=== PATIENT | male | born 1950 | race Caucasian/White ===

== ENCOUNTER 2017-12-13 18:49 | Emergency (ER) | payer MEDICARE, OTHER ==
--- NOTE | 2017-12-13 18:59 | ED Physician Documentation ---
PD HPI SKIN - Stated complaint Stated Complaint: LT FOOT BLISTER - Chief complaint Chief Complaint: Wound - History obtained from History obtained from: Patient - History of Present Illness Timing - onset: Today Timing - duration: Days (he has had a thickened skin area over a bone spur on the plantar aspect, with the area of it appearing c/w a corn. He had been walking more today and when took shoe off, noted a blister distal to that area of thick skin. No drainage.) Timing - details: Abrupt onset (for the blister part of it today) Location: LLE (plantar mid foot) Quality / character: No: Painful, Burning Review of Systems Constitutional: denies: Fever, Chills, Myalgias GI: denies: Nausea, Vomiting PD PAST MEDICAL HISTORY - Past Medical History Cardiovascular: Hypertension, High cholesterol Respiratory: None Endocrine/Autoimmune: Type 2 diabetes GI: None : None HEENT: None Psych: None Musculoskeletal: None Derm: None - Past Surgical History Past Surgical History: Yes - Present Medications Home Medications: Ambulatory Orders Medication Instructions Recorded Confirmed Insulin Glargine [Lantus] 35 units SQ BID 11/13/13 01/17/15 Lisinopril 20 mg PO DAILY 11/13/13 01/17/15 Metformin HCl 1,000 mg PO BID 11/13/13 01/17/15 Simvastatin 40 mg PO DAILY 11/13/13 01/17/15 Aspirin [Children's Aspirin] 81 mg PO DAILY 09/01/14 01/17/15 Sulfamethox/Trimeth 800/160 1 each PO BID #14 tablet 12/13/17 [Bactrim Ds 800/160] - Allergies Allergies/Adverse Reactions: Allergies Allergy/AdvReac Type Severity Reaction Status Date / Time No Known Drug Allergies Allergy Verified 12/13/17 18:56 - Social History Does the pt smoke?: No Smoking Status: Never smoker Does the pt drink ETOH?: No Does the pt have substance abuse?: No - Immunizations Immunizations are current?: Yes - POLST Patient has POLST: No PD ED PE NORMAL - Vitals Vital signs reviewed: Yes - General General: Alert and oriented X 3, No acute distress, Well developed/nourished - Derm Derm: Normal color, Warm and dry - Extremities Extremities: Other (let mid foot plantar aspect with rounded hyperkeratotic, firm area without central umbilication. Distal to that is a 2x3 cm flatter blister with purple fluid in it. Watery fluid, and not thicker. No surrounding redness. ) Results - Vitals Vitals: Oxygen O2 Source Room air - Labs Labs: Microbiology 12/13/17 19:23 Wound Culture - Preliminary Foot - Left Laboratory Tests 12/13/17 19:05 POC Whole Bld Glucose 180 H PD MEDICAL DECISION MAKING - ED course Complexity details: considered differential (used scalpel tip to just mason the wound to get 2 good drops out, which was watery, cloudy to old bloody color, but not thick nor overtly purulent. ), d/w patient, d/w rewards consultant (patient called his Leather Scraper on his own phone and had me talk with him. He agreed to opening with mason to get fluid for culture, dressing it, and Rx for anti-staph coverage.) Departure - Departure Disposition: Home, Self Care Clinical Impression: Blister of plantar aspect of foot Qualifiers: Encounter type: initial encounter Laterality: left Qualified Code(s): S90.822A - Blister (nonthermal), left foot, initial encounter Condition: Stable Record reviewed to determine appropriate education?: Yes Instructions: ED Staph Infec Abx Tx Only Follow-Up: SIMONA HARRIS [Primary Care Provider] - Prescriptions: Sulfamethox/Trimeth 800/160 [Bactrim Ds 800/160] 1 each PO BID #14 tablet Comments: Clean the area with soap and water couple times a day. He can use some topical ointment. Have it wrapped for padding. Bactrim antibiotic twice daily for the next several days pending the culture result. Concern would be for early infection such as staph aureus. Follow-up with the strategic intelligence officer Friday as planned. Discharge Date/Time: 12/13/17 19:46
[2017-12-13 19:21] VITALS: BP 169/74
[2017-12-13] MEDS ORDERED: SULFAMETH/TRIMETH DS 800/160 MG TABLET PO STA (19:25)
== END 2017-12-13 19:46 | disposition home or self-care (01) ==
LOC: ED 18:49
DX: S90.822A Blister (nonthermal), left foot, initial encounter (principal); X58.XXXA Exposure to other specified factors, initial encounter; Y93.01 Activity, walking, marching and hiking; I10 Essential (primary) hypertension; E78.00 Pure hypercholesterolemia, unspecified; E11.9 Type 2 diabetes mellitus without complications; Z79.4 Long term (current) use of insulin; Z79.82 Long term (current) use of aspirin
CPT/HCPCS: 10140; 87070; 87077; 87181; 87205; 99283; A9270

== ENCOUNTER 2018-04-25 10:36 | Emergency (ER) | payer MEDICARE, OTHER ==
[2018-04-25 10:45] VITALS: BP 166/72
--- NOTE | 2018-04-25 10:58 | ED Physician Documentation ---
PD HPI WOUND RECHECK - Stated complaint Stated Complaint: BANDAGE CHANGE - Chief complaint Chief Complaint: Wound - Histroy obtained from History obtained from: Patient - History of Present Illness Location: Left Foot Pain level max: 1 - Additional information Additional information: Patient is a 67-year-old male with history of diabetes, diabetic neuropathy, Charcot's foot. Patient had surgery performed yesterday on his left foot and was told by his surgeon to come to the ED today for repeat imaging of his wound. Patient has bandaging and a posterior splint over his left lower extremity. Patient notes no significant pain, but some bleeding. No purulent drainage. Patient also denies other systemic symptoms such as fever, chills, vomiting, or other complaints. No particular improving or worsening symptoms or interventions noted. Review of Systems Constitutional: denies: Fever, Chills GI: denies: Vomiting Skin: reports: Other (Left lower extremity wound overlying foot with serosanguineous drainage) Musculoskeletal: denies: Extremity pain Neurologic: reports: Numbness PD PAST MEDICAL HISTORY - Past Medical History Past Medical History: Yes Cardiovascular: Hypertension, High cholesterol Respiratory: None Endocrine/Autoimmune: Type 2 diabetes GI: None : None HEENT: None Psych: None Musculoskeletal: None Derm: None - Past Surgical History Past Surgical History: Yes - Present Medications Home Medications: Ambulatory Orders Medication Instructions Recorded Confirmed Insulin Glargine [Lantus] 35 units SQ BID 11/13/13 04/25/18 Lisinopril 20 mg PO DAILY 11/13/13 04/25/18 Metformin HCl 1,000 mg PO BID 11/13/13 04/25/18 Simvastatin 40 mg PO DAILY 11/13/13 04/25/18 Aspirin [Children's Aspirin] 81 mg PO DAILY 09/01/14 04/25/18 Sulfamethox/Trimeth 800/160 1 each PO BID #14 tablet 12/13/17 04/25/18 [Bactrim Ds 800/160] - Allergies Allergies/Adverse Reactions: Allergies Allergy/AdvReac Type Severity Reaction Status Date / Time No Known Drug Allergies Allergy Verified 04/25/18 10:46 - Social History Does the pt smoke?: No Smoking Status: Never smoker Does the pt drink ETOH?: No Does the pt have substance abuse?: No - Immunizations Immunizations are current?: Yes - POLST Patient has POLST: No PD ED PE NORMAL - General General: Alert and oriented X 3, No acute distress, Well developed/nourished - HEENT HEENT: Atraumatic - Cardiac Cardiac: Strong equal pulses - Respiratory Respiratory: No respiratory distress - Derm Derm: Normal color, Warm and dry, No rash, Other (Sutures in place with mild serosanguineous bleeding but no purulent drainage overlying the left foot) - Extremities Extremities: No tenderness to palpate, Other (Managing and short posterior slab splint in place over left lower extremity) - Neuro Neuro: Alert and oriented X 3, Other (Unchanged diabetic neuropathy of lower extremities) Results - Vitals Vitals: Vital Signs - 24 hr 04/25/18 10:44 Temperature 36.0 C L Heart Rate 89 Respiratory 16 Rate Blood Pressure 166/72 H O2 Saturation 99 Oxygen O2 Source Room air PD MEDICAL DECISION MAKING - ED course Complexity details: d/w patient, d/w family ED course: Patient presenting to the ED with request for bandaging change. Spoke briefly with the patient's ur coordinator on the phone who provided recommendations on appropriate bandaging. No evidence of infection or other complication on exam. Patient has mild serosanguineous drainage that required re-bandaging.No further interventions required.Patient comfortable with discharge plan. Departure - Departure Disposition: 01 Home, Self Care Condition: Good Instructions: Wound Care Follow-Up: SIMONA HARRIS [Primary Care Provider] - Within 3 Days Fabrizio Garcia DPM [Physician No Access] - Within 3 Days Comments: Please follow-up with surgeon and podiatry as scheduled in the next several days. Please follow all recommendations and precautions regarding your foot, including bandaging and appropriate use of medications. Please return to ED if experience any complications or have other concerns.
--- NOTE | 2018-04-26 12:56 | ED Physician Documentation ---
ED Addendum - Addendum Addendum: 04/26/18 12:56 Diagnosis wound check Status good
== END 2018-04-25 13:07 | disposition home or self-care (01) ==
LOC: ED 10:36
DX: Z48.01 Encounter for change or removal of surgical wound dressing (principal); S91.302A Unspecified open wound, left foot, initial encounter; I10 Essential (primary) hypertension; E11.9 Type 2 diabetes mellitus without complications; Z79.4 Long term (current) use of insulin
CPT/HCPCS: 99281; 99283

== ENCOUNTER 2020-04-07 15:24 | Outpatient (CLI) | payer MEDICARE, OTHER | END 2020-04-07 15:25 | disposition home or self-care (01) | LOC: COV 15:24 | PROVIDERS: ATTEND Family Medicine | DX: M79.10 Myalgia, unspecified site (principal); R68.83 Chills (without fever); J34.89 Other specified disorders of nose and nasal sinuses; Z20.822 Contact with and (suspected) exposure to COVID-19 ==

== ENCOUNTER 2022-01-18 12:43 | Emergency (ER) | payer MEDICARE, OTHER ==
[2022-01-18 12:57] VITALS: BP 158/65
[2022-01-18 13:21] LABS: BASOPHILS % (AUTO) 0.9 %; EOSINOPHILS # (AUTO) 0.1 10^3/uL (0.0-0.7); EOSINOPHILS % (AUTO) 2.1 %; HCT - HEMATOCRIT 41.6 % (42.0-52.0); HGB - HEMOGLOBIN 13.3 g/dL (14.0-18.0); LYMPHOCYTES # (AUTO) 0.8 10^3/uL (1.5-3.5); MEAN CORPUSCULAR HEMOGLOBIN 29.3 pg (27.0-31.0); MEAN CORPUSCULAR VOLUME 91.6 fL (80.0-94.0); MEAN PLATELET VOLUME 8.9 fL (7.4-11.4); MONOCYTES # (AUTO) 0.8 10^3/uL (0.0-1.0); MONOCYTES % (AUTO) 16.3 %; NEUTROPHILS # (AUTO) 2.9 10^3/uL (1.5-6.6); NEUTROPHILS % (AUTO) 62.1 %; PLT - PLATELET COUNT 290 10^3/uL (130-450); RED BLOOD COUNT 4.54 10^6/uL (4.70-6.10); RED CELL DISTRIBUTION WIDTH 14.4 % (12.0-15.0); WHITE BLOOD COUNT 4.7 x10^3/uL (4.8-10.8)
[2022-01-18 13:32] LABS: ALBUMIN 4.3 g/dL (3.2-5.5); ALBUMIN/GLOBULIN RATIO 1.1 (1.0-2.2); BILIRUBIN,TOTAL 0.7 mg/dL (0.2-1.0); CALCIUM 9.3 mg/dL (8.5-10.3); CREATININE 1.3 mg/dL (0.6-1.2); POTASSIUM 4.9 mmol/L (3.5-5.0); TOTAL PROTEIN 8.2 g/dL (6.7-8.2)
--- NOTE | 2022-01-18 14:02 | ED Physician Documentation ---
History of Present Illness - Stated complaint Stated Complaint: H POTASSIUM - Chief complaint Chief Complaint: General - Additonal information Additional information: History obtained from patient. 71-year-old type II diabetic presents to the emergency department on the advice of his physician's through [facility] for evaluation of hyperkalemia. He is currently undergoing treatment and care for bilateral foot infections and is on Bactrim. During routine laboratory draw yesterday they noted that a potassium was 6.6 and he was advised to come to the emergency department. He is denying any chest pain, nausea vomiting paresthesias, diarrhea. He does report that the blood draw completed a few days ago was traumatic. He does have a large bruise in this region. Review of Systems Constitutional: denies: Fever, Chills Cardiac: denies: Chest pain / pressure, Palpitations Respiratory: denies: Dyspnea, Cough Skin: reports: Other (Partial toe amputations on both feet. 1 foot in a walking boot the other in a postop splint) Musculoskeletal: reports: Reviewed and negative PD PAST MEDICAL HISTORY - Past Medical History Cardiovascular: Hypertension, High cholesterol Respiratory: None Endocrine/Autoimmune: Type 2 diabetes GI: None : None HEENT: None Psych: None Musculoskeletal: None Derm: None - Past Surgical History Past Surgical History: Yes - Present Medications Home Medications: Ambulatory Orders Medication Instructions Recorded Confirmed Insulin Glargine [Lantus] 35 units SQ BID 11/13/13 04/25/18 Metformin HCl 1,000 mg PO BID 11/13/13 04/25/18 Simvastatin 40 mg PO DAILY 11/13/13 04/25/18 lisinopriL [Lisinopril] 20 mg PO DAILY 11/13/13 04/25/18 Aspirin [Children's Aspirin] 81 mg PO DAILY 09/01/14 04/25/18 Sulfamethox/Trimeth 800/160 1 each PO BID #14 tablet 12/13/17 04/25/18 [Bactrim Ds 800/160] - Allergies Allergies/Adverse Reactions: Allergies Allergy/AdvReac Type Severity Reaction Status Date / Time No Known Drug Allergies Allergy Verified 01/18/22 12:56 - Social History Does the pt smoke?: No Smoking Status: Never smoker Does the pt drink ETOH?: No Does the pt have substance abuse?: No - Immunizations Immunizations are current?: Yes - POLST Patient has POLST: No PD ED PE NORMAL - General General: Alert and oriented X 3, No acute distress - Cardiac Cardiac: RRR, No murmur - Respiratory Respiratory: Clear bilaterally - Abdomen Abdomen: Normal bowel sounds, Soft, Non tender, Non distended - Derm Derm: Normal color, Warm and dry Results - Vitals Vitals: Vital Signs - 24 hr 01/18/22 12:53 Temperature 36.5 C Heart Rate 95 Respiratory 14 Rate Blood Pressure 158/65 H O2 Saturation 100 Oxygen O2 Source Room air - EKG (time done) 1303 Rate: Rate (enter#) (94) Rhythm: NSR [place]: Normal Intervals: Normal NE QRS: Normal Ischemia: Q waves (Inferior leads) Compare to prior EKG: Old EKG unavailable Computer interpretation: Agree with computer - Labs Labs: Laboratory Tests 01/18/22 01/18/22 13:14 13:14 WBC 4.7 L RBC 4.54 L Hgb 13.3 L Hct 41.6 L MCV 91.6 MCH 29.3 MCHC 32.0 RDW 14.4 Plt Count 290 MPV 8.9 Neut # (Auto) 2.9 Lymph # (Auto) 0.8 L [place] # (Auto) 0.8 Eos # (Auto) 0.1 Baso # (Auto) 0.0 Absolute Nucleated RBC 0.00 Nucleated RBC % 0.0 Sodium 134 L Potassium 4.9 Chloride 99 L Carbon Dioxide 23 Anion Gap 12.0 BUN 23 H Creatinine 1.3 H Estimated GFR (MDRD) 55 L Glucose 227 H Calcium 9.3 Total Bilirubin 0.7 AST 45 H ALT 46 Alkaline Phosphatase 62 Total Protein 8.2 Albumin 4.3 Globulin 3.9 Albumin/Globulin Ratio 1.1 Lipase 66 H PD MEDICAL DECISION MAKING - ED course Complexity details: reviewed results, re-evaluated patient, considered differential, d/w patient ED course: Well-appearing 8-year-old male who is a type II diabetic on insulin presents emergency department for concerns of hyperkalemia during a routine laboratory draw yesterday. Reportedly potassium was 6.6. We did repeat his CBC and electrolytes here in the emergency department and note a normal potassium of 4.9. He does report that the collaborating supervising physician had a difficult time obtaining the draw yesterday and there is a large area of ecchymosis around the site. I suspect that the cause of the hyperkalemia was simply hemolysis. No further care is warranted at this time his EKG was sinus rhythm without findings or T wave elevation to suggest hyperkalemia. He is discharged home in stable condition. Emergent return precautions discussed. Departure - Departure Disposition: 01 Home, Self Care Clinical Impression: Laboratory examination Condition: Stable Record reviewed to determine appropriate education?: Yes Comments: Rafa you were advised to [place] concerns that you are hyperkalemic or had an elevated potassium level in your blood. They reported a potassium of 6.6. Your potassium is 4.9 today. This is a normal value. I suspect that the elevated potassium was simply due to hemolysis of the red blood cells [place] Your EKG here did not show any findings to suggest hyperkalemia. At this point no further care is necessary. You can continue to follow[place]iat[place] You can continue your usual medications including the antibiotic to treat the foot infection. Return to the ER for any other worrisome or emergent concerns.
== END 2022-01-18 14:19 | disposition home or self-care (01) ==
LOC: ED 12:43
DX: Z03.89 Encounter for observation for other suspected diseases and conditions ruled out (principal); L08.9 Local infection of the skin and subcutaneous tissue, unspecified
CPT/HCPCS: 36415; 80053; 83690; 85025; 93005; 99281; 99283

== ENCOUNTER 2023-05-09 17:53 | Emergency (ER) | payer MEDICARE, OTHER ==
[2023-05-09 18:03] VITALS: BP 140/64; O2SAT 97
--- NOTE | 2023-05-09 18:11 | ED Physician Documentation ---
PD HPI WOUND RECHECK - Stated complaint Stated Complaint: LT TOE INJ - Chief complaint Chief Complaint: Wound - Histroy obtained from History obtained from: Patient - Additional information Additional information: 72-year-old gentleman with history of diabetes with neuropathy and Charcot foot. Already missing most of the toes on the right foot. He developed a corn on the left foot which popped yesterday and has some pus from it and was referred here f by his account clerk for x-ray imaging and wound care and antibiotics. He specifically rest [facility] Bactrim for this, states he had good relic with it in the past. PD PAST MEDICAL HISTORY - Past Medical History Past Medical History: Yes Cardiovascular: Hypertension, High cholesterol Respiratory: None Endocrine/Autoimmune: Type 2 diabetes GI: None : None HEENT: None Psych: None Musculoskeletal: None Derm: None - Past Surgical History Past Surgical History: Yes - Present Medications Home Medications: Ambulatory Orders Medication Instructions Recorded Confirmed Insulin Glargine [Lantus] 35 units SQ BID 11/13/13 05/09/23 Metformin HCl 1,000 mg PO BID 11/13/13 05/09/23 Simvastatin 40 mg PO DAILY 11/13/13 05/09/23 lisinopriL [Lisinopril] 20 mg PO DAILY 11/13/13 05/09/23 Aspirin [Children's Aspirin] 81 mg PO DAILY 09/01/14 05/09/23 Sulfamethox/Trimeth 800/160 1 each PO BID #14 tablet 12/13/17 05/09/23 [Bactrim Ds 800/160] Sulfamethox/Trimeth 800/160 1 each PO BID #14 tablet 05/09/23 [Bactrim Ds 800/160] - Allergies Allergies/Adverse Reactions: Allergies Allergy/AdvReac Type Severity Reaction Status Date / Time No Known Drug Allergies Allergy Verified 05/09/23 17:57 - Social History Does the pt smoke?: No Smoking Status: Never smoker Does the pt drink ETOH?: No Does the pt have substance abuse?: No - Immunizations Immunizations are current?: Yes - POLST Patient has POLST: No PD ED PE NORMAL - Vitals Vital signs reviewed: Yes - General General: Alert and oriented X 3, No acute distress - Extremities Extremities: Other (There is an infected ulcer/blister over the dorsum of the left third toe that was debrided sharply during exam and there was just a drop of pus and sent for culture.) - Neuro Neuro: Alert and oriented X 3, Normal speech Results - Vitals Vitals: Vital Signs - 24 hr 05/09/23 17:57 Temperature 36.5 C Heart Rate 100 Respiratory 16 Rate Blood Pressure 140/64 H O2 Saturation 97 Oxygen O2 Source Room air - Labs Labs: Microbiology 05/09/23 18:10 Wound Culture - Preliminary Toe - Left Fourth - Rads (name of study) Left foot x-ray negative for osteomyelitis. Relevant Findings:: Final report received, EMP independent interpretation of test PD Medical Decision Making - ED course ED course: 72-year-old gentleman with diabetes and diabetic neuropathy and Charcot foot presents with an infection with an ulcer and corn to the top of the left third toe which was debrided and cultured and he was placed on Bactrim with negative x-ray. He has a account clerk with whom he will follow-up. Departure - Departure Disposition: Home, Self Care Clinical Impression: Toe infection, Type 1 diabetes, controlled, with cellulitis of toe Condition: Good Record reviewed to determine appropriate education?: Yes Instructions: Cellulitis Dc Prescriptions: Sulfamethox/Trimeth 800/160 [Bactrim Ds 800/160] 1 each PO BID #14 tablet Comments: The x-ray does not demonstrate that the infection is down to the bone. Follow- up with your account clerk on Friday. Return for new or worsening symptoms. We are performing a wound culture, the results should be done in 48-72 hours. If antibiotic change is necessary we will call you. Return if worse in the meantime, especially if you develop increased pain, fevers, cannot keep down the medication. Otherwise follow-up with your physician in approximately 2-3 days. Forms: PCP List Discharge Date/Time: 05/09/23 18:50
[2023-05-09] MEDS: SULFAMETH/TRIMETH DS 800/160 MG TABLET PO STA (18:29)
--- NOTE | 2023-05-09 19:09 | XRAY Report ---
PROCEDURE: Foot 3+V LT INDICATIONS: toe inf TECHNIQUE: 3 views of the foot were acquired. COMPARISON: None. FINDINGS: Bones: Diffusely decreased osseous mineralization. Extensive post surgical changes within the midfoot . However appears intact. Severe pes planus deformity. No suspicious bony lesions. Soft tissues: No tibiotalar joint effusion. Achilles tendon appears normal. Atherosclerotic vascul ar calcifications. IMPRESSION: 1.No definite erosive changes are seen to suggest osteomyelitis. Radiograph is not sensitive for meghann y osteomyelitis and MRI can be obtained for further evaluation as clinically indicated. 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 Reviewed by: Oj Rubio MD on 05/09/2023 7:08 PM PDT Approved by: Oj Rubio MD on 05/09/2023 7:08 PM PDT Station ID: [id number]
== END 2023-05-09 18:50 | disposition home or self-care (01) ==
LOC: ED 17:53
DX: E11.628 Type 2 diabetes mellitus with other skin complications (principal); L03.032 Cellulitis of left toe; Z79.84 Long term (current) use of oral hypoglycemic drugs; I10 Essential (primary) hypertension
CPT/HCPCS: 73630; 87070; 87205; 99284; A9270

== ENCOUNTER 2023-05-15 19:15 | Emergency (ER) | payer MEDICARE, OTHER ==
[2023-05-15 19:34] VITALS: BP 157/67
[2023-05-15 20:00] LABS: BASOPHILS # (AUTO) 0.1 10^3/uL (0.0-0.1); BASOPHILS % (AUTO) 1.2 %; EOSINOPHILS # (AUTO) 0.1 10^3/uL (0.0-0.7); EOSINOPHILS % (AUTO) 2.5 %; HCT - HEMATOCRIT 43.1 % (42.0-52.0); HGB - HEMOGLOBIN 13.4 g/dL (14.0-18.0); LYMPHOCYTES # (AUTO) 1.5 10^3/uL (1.5-3.5); MEAN CORPUSCULAR HEMOGLOBIN 29.3 pg (27.0-31.0); MEAN CORPUSCULAR HGB CONC 31.1 g/dL (32.0-36.0); MEAN CORPUSCULAR VOLUME 94.3 fL (80.0-94.0); MEAN PLATELET VOLUME 8.9 fL (7.4-11.4); MONOCYTES # (AUTO) 0.7 10^3/uL (0.0-1.0); MONOCYTES % (AUTO) 13.6 %; NEUTROPHILS # (AUTO) 2.8 10^3/uL (1.5-6.6); NEUTROPHILS % (AUTO) 53.2 %; PLT - PLATELET COUNT 272 10^3/uL (130-450); RED BLOOD COUNT 4.57 10^6/uL (4.70-6.10); RED CELL DISTRIBUTION WIDTH 14.6 % (12.0-15.0); WHITE BLOOD COUNT 5.2 x10^3/uL (4.8-10.8)
[2023-05-15 20:09] LABS: MAGNESIUM 1.8 mg/dL (1.7-2.3)
[2023-05-15 20:14] LABS: CALCIUM 9.1 mg/dL (8.5-10.3); CREATININE 1.1 mg/dL (0.6-1.3); POTASSIUM 4.8 mmol/L (3.5-4.5)
[2023-05-15] MEDS ORDERED: SODIUM CHLORIDE 0.9% 1,000 ML IV ONE (20:16)
--- NOTE | 2023-05-15 20:16 | ED Physician Documentation ---
History of Present Illness - Stated complaint Stated Complaint: ABNORMAL LABS - Chief complaint Chief Complaint: General PD PAST MEDICAL HISTORY - Past Medical History Cardiovascular: Hypertension, High cholesterol Respiratory: None Endocrine/Autoimmune: Type 2 diabetes GI: None : None HEENT: None Psych: None Musculoskeletal: None Derm: None - Past Surgical History Past Surgical History: Yes - Present Medications Home Medications: Ambulatory Orders Medication Instructions Recorded Confirmed Insulin Glargine [Lantus] 35 units SQ BID 11/13/13 05/09/23 Metformin HCl 1,000 mg PO BID 11/13/13 05/09/23 Simvastatin 40 mg PO DAILY 11/13/13 05/09/23 lisinopriL [Lisinopril] 20 mg PO DAILY 11/13/13 05/09/23 Aspirin [Children's Aspirin] 81 mg PO DAILY 09/01/14 05/09/23 Sulfamethox/Trimeth 800/160 1 each PO BID #14 tablet 12/13/17 05/09/23 [Bactrim Ds 800/160] Dulaglutide [Trulicity] 0.5 ml IM MAINTENANCE.IV 05/15/23 - Allergies Allergies/Adverse Reactions: Allergies Allergy/AdvReac Type Severity Reaction Status Date / Time No Known Drug Allergies Allergy Verified 05/15/23 20:03 - Social History Does the pt smoke?: No Smoking Status: Never smoker Does the pt drink ETOH?: No Does the pt have substance abuse?: No - Immunizations Immunizations are current?: Yes - POLST Patient has POLST: No Results - Vitals Vitals: Vital Signs - 24 hr 05/15/23 19:27 Temperature 36.6 C Heart Rate 84 Respiratory 17 Rate Blood Pressure 157/67 H O2 Saturation 100 Oxygen O2 Source Room air - Labs Labs: Laboratory Tests 05/15/23 05/15/23 19:55 19:55 WBC 5.2 RBC 4.57 L Hgb 13.4 L Hct 43.1 MCV 94.3 H MCH 29.3 MCHC 31.1 L RDW 14.6 Plt Count 272 MPV 8.9 Neut # (Auto) 2.8 Lymph # (Auto) 1.5 [place] # (Auto) 0.7 Eos # (Auto) 0.1 Baso # (Auto) 0.1 Absolute Nucleated RBC 0.00 Nucleated RBC % 0.0 Sodium 129 L Potassium 4.8 H Chloride 97 L Carbon Dioxide 23 Anion Gap 9.0 BUN 24 H Creatinine 1.1 Estimated GFR (MDRD) 66 L Glucose 317 H Calcium 9.1 Magnesium 1.8 Departure - Departure
[2023-05-15 20:40] VITALS: O2SAT 99
== END 2023-05-15 20:51 | disposition home or self-care (01) ==
LOC: ED 19:15
DX: E87.5 Hyperkalemia (principal); E87.1 Hypo-osmolality and hyponatremia; E11.9 Type 2 diabetes mellitus without complications; Z79.4 Long term (current) use of insulin; Z79.84 Long term (current) use of oral hypoglycemic drugs; Z79.85 Long-term (current) use of injectable non-insulin antidiabetic drugs
CPT/HCPCS: 36415; 80048; 83735; 85025; 99283

== ENCOUNTER 2023-08-09 16:59 | Emergency (ER) | payer MEDICARE, OTHER ==
[2023-08-09 17:29] VITALS: BP 160/60; O2SAT 98
--- NOTE | 2023-08-09 19:28 | ED Physician Documentation ---
PD HPI SKIN - Stated complaint Stated Complaint: LT FOOT PX - Chief complaint Chief Complaint: Wound - Additional information Additional information: 72-year-old male presents emergency department for possible new left middle toe ulcer. Patient has close follow-up with multiple specialist for his neuropathy and has had multiple surgeries for foot infections he does have type 2 diabetes and has an appointment this telephone betting clerk on Friday. No new fevers or chills he just noticed a couple days ago a small ulcer that started bleeding so he wanted to come into the emergency department for further evaluation of possible infection. PD PAST MEDICAL HISTORY - Past Medical History Past Medical History: Yes Cardiovascular: Hypertension, High cholesterol Respiratory: None Endocrine/Autoimmune: Type 2 diabetes GI: None : None HEENT: None Psych: None Musculoskeletal: None Derm: None - Past Surgical History Past Surgical History: Yes - Present Medications Home Medications: Ambulatory Orders Medication Instructions Recorded Confirmed Insulin Glargine [Lantus] 15 - 22 units SQ BID 11/13/13 08/09/23 Metformin HCl 1,000 mg PO BID 11/13/13 08/09/23 Simvastatin 40 mg PO DAILY 11/13/13 08/09/23 lisinopriL [Lisinopril] 20 mg PO DAILY 11/13/13 08/09/23 Aspirin [Children's Aspirin] 81 mg PO DAILY 09/01/14 08/09/23 Sulfamethox/Trimeth 800/160 1 each PO BID #14 tablet 12/13/17 08/09/23 [Bactrim Ds 800/160] Dulaglutide [Trulicity] 0.5 ml IM Q7D 05/15/23 08/09/23 Insulin Lispro [Humalog] 7 unit SUBQ DAILY PM 08/09/23 08/09/23 - Allergies Allergies/Adverse Reactions: Allergies Allergy/AdvReac Type Severity Reaction Status Date / Time No Known Drug Allergies Allergy Verified 08/09/23 17:25 - Social History Does the pt smoke?: No Smoking Status: Never smoker Does the pt drink ETOH?: No Does the pt have substance abuse?: No - Immunizations Immunizations are current?: Yes - POLST Patient has POLST: No PD ED PE NORMAL - Vitals Vital signs reviewed: Yes - General General: Alert and oriented X 3, No acute distress, Well developed/nourished - Derm Derm: Other (Small 1 cm left middle toe ulcer no purulent drainage no oozing) - Psych Psych: Normal mood, Normal affect Results - Vitals Vitals: Vital Signs - 24 hr 08/09/23 17:25 Temperature 36.8 C Heart Rate 86 Respiratory 16 Rate Blood Pressure 160/60 H O2 Saturation 98 Oxygen O2 Source Room air PD Medical Decision Making - ED course ED course: 72-year-old male with multiple comorbidities and issues with his feet presents emergency department for left middle toe pain and ulceration. Patient says that he has been having issues with this ulcer for a very long time now and has an appoint with his telephone betting clerk on Friday but just wanted to make sure that the infection was not getting any worse. Upon evaluation of the toe it does not appear to be infected there is no purulent drainage no streaking running of the foot patient has had no fevers or chills and patient says that he is actually quite surprised to see that it is actually improved while he has been here in the emergency department. I do not believe any further antibiotics are warranted he is already on Bactrim and tolerating those well. Patient was informed to not miss his appointment with his telephone betting clerk informed to come back to the emergency department if he is worried about any worsening symptoms but at this point in time I do not believe any change in regimen of patient's current regimen is warranted. All questions answered patient safe for discharge. Departure - Departure Disposition: 01 Home, Self Care Clinical Impression: Foot ulcer Instructions: Neuropathy Peripheral Comments: Thank you for trusting us with your care. I have evaluated your toe does not appear there is any acute worsening infection at this point in time. Continue to dress it with that you have been and follow-up with your podiatry appointment first thing Friday to let them know about today's ER visit. Please come back to the ER if you are starting develop any fevers or chills or any other concern ing emergent symptoms such as worsening infection. Forms: PCP List Discharge Date/Time: 08/09/23 19:35
== END 2023-08-09 19:35 | disposition home or self-care (01) ==
LOC: ED 16:59
DX: L97.529 Non-pressure chronic ulcer of other part of left foot with unspecified severity (principal); E11.42 Type 2 diabetes mellitus with diabetic polyneuropathy; Z79.4 Long term (current) use of insulin; Z79.84 Long term (current) use of oral hypoglycemic drugs
CPT/HCPCS: 99281; 99283